=== PATIENT | female | born 1965 | race Caucasian/White ===

== ENCOUNTER 2018-11-02 19:59 | Emergency (ER) | payer OTHER ==
[~2018-11-02] VITALS: Ht 157.5 cm; Wt 86.2 kg
[2018-11-02 20:10] VITALS: BP 120/68
--- NOTE | 2018-11-02 20:10 | NUR ---
PATIENT AMBULATED TO ER BED 10.
--- NOTE | 2018-11-02 20:10 | NUR ---
53 Y/O FEMALE PRESENTS TO ED WITH C/O BILAT WRIST, KNEE, AND ANKLE PAIN X1 HR. PT STATES AT [employer]. SLIPPED ON WATER. AND FELL. DENIES HITTING HEAD. 6/10 PAIN. BRUSING NOTED ON RIGHT KNEE. ER MD AWARE. CONTINUE TO MONITOR.
[2018-11-02] MEDS ORDERED: IBUPROFEN 600 MG TAB PO ONE (21:40)
--- NOTE | 2018-11-02 21:46 | NUR ---
XRAY AT BEDSIDE FOR INTERVENTION.
--- NOTE | 2018-11-02 22:39 | NUR ---
PT IN BED RESTING. STATES 4/10 PAIN BUT TOLLERABLE. VSS. CONTINUE TO MONITOR.
--- NOTE | 2018-11-02 22:43 | NUR ---
Applied 3inch svitlana wrap to patients right knee and right wrist and hand. Patient tolerated svitlana wrap well, PMSC's assessed and WNL.
[2018-11-02 22:59] VITALS: BP 123/77
--- NOTE | 2018-11-02 22:59 | NUR ---
Dr. Hansen examining patient.
--- NOTE | 2018-11-02 22:59 | NUR ---
PT D/C BY DR GARDNER. RX OF NAPROCYN GIVEN. SIDE EFFECTS EXPLAINED. PT VERBALIZED UNDERSTANDING TO DR GARDNER. PT INSTRUCTED TO F/U WITH PCP AND WHEN TO RETURN TO ER. ALL QUESTIONS ANSWERED.
== END 2018-11-02 22:59 | disposition home or self-care (01) ==
LOC: MED 19:59
DX: S83.92XA Sprain of unspecified site of left knee, initial encounter (principal); S83.91XA Sprain of unspecified site of right knee, initial encounter; S93.401A Sprain of unspecified ligament of right ankle, initial encounter; S60.00XA Contusion of unspecified finger without damage to nail, initial encounter; E11.9 Type 2 diabetes mellitus without complications; Z90.49 Acquired absence of other specified parts of digestive tract; Z90.710 Acquired absence of both cervix and uterus; Z98.890 Other specified postprocedural states; W01.0XXA Fall on same level from slipping, tripping and stumbling without subsequent striking against object, initial encounter; Y93.89 Activity, other specified; Y92.512 Supermarket, store or market as the place of occurrence of the external cause; Y99.8 Other external cause status
CPT/HCPCS: 73130; 73562; 73610; 99283; Q0092